=== PATIENT | female | born 1990 | race Caucasian/White ===

== ENCOUNTER 2018-04-18 21:23 | Outpatient (CLI) | END 2018-04-19 00:57 | disposition home or self-care (01) ==

== ENCOUNTER 2018-08-12 13:18 | Inpatient (IN) | payer OTHER ==
[~2018-08-12] VITALS: Ht 160 cm; Wt 75.4 kg
[~2018-08-12 13:18] MED LIST: HYDR250V5 IM; PREN-19 PO
[2018-08-12 13:35] VITALS: BP 107/70; PULSE 106; RESP 18
[2018-08-12 13:36] VITALS: Ht 160 cm; Wt 75.4 kg
--- NOTE | 2018-08-12 15:24 | PREAC ---
Date/Time of Note Date/Time of Note DATE: 08/12/18 TIME: 15:23 Anesthesia Eval and Record Evaluation Time Pre-Procedure Interview DATE: 08/12/18 TIME: 15:23 Age 28 Sex female NPO: Other (na) Preoperative diagnosis labor pain Planned procedure epidural Past Medical History Past Medical History: None Surgery & Anesthesia Issues No known issue Meds Anticoagulation: No Beta Chepe within 24 hr: No Reason Beta Chepe not given: Pt. not on B-Chepe Reported Medications Vit #76/Iron,Carb/FA (Prenatabs Rx Tablet) 1 Each Tablet, 1 EACH PO DAILY, TAB 04/18/18 Hydroxyprogesterone Caproate (Shaista) 250 Mg/1 Ml Vial, 250 MG IM, VIAL 04/18/18 Current Medications Lactated Ringer's 1,000 ml @ 125 mls/hr Q8H IV ; Start 08/12/18 at 15:06 Butorphanol Tartrate (Stadol) 1 mg Q2H PRN IV .PAIN; Start 08/12/18 at 15:30 Butorphanol Tartrate (Stadol) 2 mg Q2H PRN IV .PAIN; Start 08/12/18 at 15:30 Lidocaine (Xylocaine 1% (Mpf)) 30 ml ONCE PRN INJ .EPISIOTOMY; Start 08/12/18 at 15:30 Oxytocin/Lactated Ringer's 500 ml @ 500 mls/hr ONCE POST IV ; Start 08/12/18 at 15:30 Oxytocin/Lactated Ringer's 500 ml @ 125 mls/hr POST IV ; Start 08/12/18 at 15:30 Ibuprofen (Motrin) 600 mg ONCE PRN PO .PAIN 1-5; Start 08/12/18 at 15:30 Oxytocin/Lactated Ringer's 500 ml @ 0 mls/hr ONCE PRN IV .VAGINAL BLEEDING; Start 08/12/18 at 15:30 Methylergonovine Maleate (Methergine) 0.2 mg ONCE PRN IM .VAGINAL BLEEDING; Start 08/12/18 at 15:30 Carboprost Tromethamine (Hemabate) 250 mcg ONCE PRN IM .VAGINAL BLEEDING; Start 08/12/18 at 15:30 Misoprostol (Cytotec) 1,000 mcg ONCE PRN LA .VAGINAL BLEEDING; Start 08/12/18 at 15:30 Meds reviewed: Yes Allergies Coded Allergies: No Known Allergy (Verified , 04/18/18) Allergies Reviewed: Yes Labs/Studies Labs Reviewed: Reviewed by anesthesiologist test: N/A Pre-procedure Exam Last vitals Vital Signs Date Temp Pulse Resp B/P (MAP) Pulse Ox O2 O2 Flow FiO2 Time Delivery Rate 08/12/18 97.6 106 18 107/70 98 Room Air 13:35 (82) Airway: Adequate mouth opening, Adequate thyromental dist Mallampati: Mallampati II Teeth: Normal Lung: Normal Heart: Normal ASA Physical Status ASA physical status: 2 Emergency: None Pre-operative Attestations Prior to commencing anesthesia and surgery, the patient was re-evaluated, there was verification of: *The patient's identity *The results of appropriate recent lab work and preoperative vital signs *The above evaluation not changing prior to induction *Anesthetic plan, risk benefits, alternative and complications discussed with patient/family; questions answered; patient/family understands, accepts and wishes to proceed. DALTON TABARES DO Aug 12, 2018 15:24
[2018-08-12] MEDS ORDERED: IBUPROFEN 600 MG TAB PO PRN (15:30)
[2018-08-12] MEDS ORDERED: LIDOCAINE 1% (MPF) 30 ML INJ INJ PRN (15:30)
[2018-08-12] MEDS ORDERED: OXYTOCIN 30 UNITS/LR 500 ML IV PRN (15:30)
[2018-08-12] MEDS ORDERED: METHYLERGONOVINE 0.2 MG INJ IM PRN (15:30)
[2018-08-12] MEDS ORDERED: CARBOPROST 250 MCG INJ IM PRN (15:30)
[2018-08-12] MEDS ORDERED: MISOPROSTOL 200 MCG TAB PR PRN (15:30)
[2018-08-12] MEDS ORDERED: NALOXONE (0.4 MG/ML) INJ IV PRN (15:30)
[2018-08-12] MEDS ORDERED: BUTORPHANOL 2 MG INJ IV PRN (15:30)
[2018-08-12] MEDS ORDERED: BUTORPHANOL 1 MG INJ IV PRN (15:30)
[2018-08-12] MEDS ORDERED: OXYTOCIN 30 UNITS/LR 500 ML IV SCH ×2 (15:30)
[2018-08-12] MEDS: LACTATED RINGER'S 1,000 ML IV SCH ×2 (15:39→23:07)
--- NOTE | 2018-08-12 16:22 | PAC ---
Date/Time of Note Date/Time of Note DATE: 08/12/18 TIME: 16:22 Post-Anesthesia Notes Post-Anesthesia Note Last documented vital signs Vital Signs Date Temp Pulse Resp B/P (MAP) Pulse Ox O2 O2 Flow FiO2 Time Delivery Rate 08/12/18 98 91 18 120/55 98 Room Air 1600 Activity: WNL Respiratory function: WNL Cardiovascular function: WNL Mental status: Baseline Pain reasonably controlled: Yes Hydration appropriate: Yes Nausea/Vomiting absent: Yes DALTON TABARES DO Aug 12, 2018 16:22
[2018-08-12] MEDS: FENTAnyl 2MCG/ML-ROPIV 0.2% 100 ML BAG EPI SCH (23:08)
[2018-08-12] MEDS ORDERED: DIPHENHYDRAMINE 50 MG INJ IV PRN (23:30)
[2018-08-12] MEDS ORDERED: ONDANSETRON 4 MG INJ IV PRN (23:30)
[2018-08-13] MEDS: LACTATED RINGER'S 1,000 ML IV SCH ×2 (06:38→14:55)
[2018-08-13] MEDS: FENTAnyl 2MCG/ML-ROPIV 0.2% 100 ML BAG EPI SCH ×2 (08:12→15:26)
[2018-08-13] MEDS ORDERED: OXYTOCIN 30 UNITS/LR 500 ML IV SCH (11:30)
[2018-08-13] MEDS ORDERED: MINERAL OIL LIGHT 10 ML VIAL TOP ONE (16:00)
--- NOTE | 2018-08-13 17:51 | HP ---
Date/Time of Note Date/Time of Note DATE: 08/13/18 TIME: 17:47 OB - History Hx of Present Free Text/Dictation 28-year-old female 5 para 3 at 38+ weeks gestation admitted complaining of onset of labor contractions started at 11 AM Patient denied rupture of membrane no vaginal bleeding Chief Complaint: Labor contraction Last Menstrual Period: November 18, 2017 Estimated Due Date: Aug 25, 2018 : 5 Para: 3 Spontaneous : 1 Care: Good Care Ultrasounds: Normal mid trimester US Obstetrical Complications: None, Other (low MARIA DEL ROSARIO-A) Medical Complications: None Past Family/Social History * Past Medical, Surgical, Family and Obstetric Histories reviewed from chart. Blood Type: B+ Rubella: immune RPR/VDRL: Negative GBS Status: Negative HBsAG: Negative OB Admission Exam Vital Signs Vital Signs Vital Signs Date Temp Pulse Resp B/P (MAP) Pulse Ox O2 O2 Flow FiO2 Time Delivery Rate 08/12/18 97.6 106 18 107/70 98 Room Air 13:35 (82) Physical Exam HEENT: WNL Heart: Rhythm Normal Lungs: Clear, Equal Abdomen: WNL Extremities: Normal Reflexes: Normal Cervical Dilatation: 2cm Effacement: 50% Station: -3 Membranes: Intact Heart Rate: 140's Accelerations: Accelerations Present Decelerations: No Decelerations Varibility: Marked Contractions on Admission: 6-10 Minutes Apart Date/Time Contractions Began: 08/12/2018 at 11 AM Frequency of Contractions: Every 5-10-minute Duration: Over 62nd Intensity: Mild Last 72 hours Lab Results CBC & BMP 08/12/18 14:20 OB Assessment/Plan Other Assessment: Term gestation Labor contractions Other plan: Proceed with spontaneous labor ELLIOT CHINCHILLA MD Aug 13, 2018 17:51
[2018-08-13] MEDS ORDERED: KETOROLAC 30 MG INJ IV STA (17:53)
--- NOTE | 2018-08-13 17:53 | LDN ---
Date/Time of Note Date/Time of Note DATE: 08/13/18 TIME: 17:51 Delivery Summary Normal spontaneous vaginal delivery of a viable over intact perineum Weeks of Gestation 38+ weeks Placenta Delivered: Spontaneously, Intact & Complete Meconium: none Episiotomy: Yes Perineal laceration: 0 Anesthesia type: Epidural Estimated blood loss: 300 Sponge & Needle done & correct: Yes All needle counts correct: Yes Any foreign bodies felt in the: No Infant Delivery Information Sex Infant Sex: male Apgars 1 Minute: 9 5 Minute: 9 Suctioning Nose & mouth suctioned at uzma: Yes Delee suction performed: No Umbilical Cord Umbilical cord with: 3 Vessels Cord presentations: no nuchal cord Cord Blood was obtained: Yes Mother & Baby Disposition Disposition Mom & Baby to Maternity; Good: Yes (Mother and baby were recovered in good condition) Mom transferred to: Other (Maternity) Baby to NICU: No ELLIOT CHINCHILLA MD Aug 13, 2018 17:53
[2018-08-13] MEDS ORDERED: CEFAZOLIN 2 GM/50 ML (PMX) 50 ML IVPB ONE (18:00)
[2018-08-13 21:40] VITALS: BP 116/70; PULSE 81; RESP 18
[2018-08-13] MEDS ORDERED: DIBUCAINE 1% 30 GM OINT TOP PRN (22:00)
[2018-08-13] MEDS ORDERED: ZOLPIDEM 5 MG TAB PO PRN (22:00)
[2018-08-13] MEDS ORDERED: MISOPROSTOL 200 MCG TAB PR PRN (22:00)
[2018-08-13] MEDS ORDERED: HYDROCODONE/APAP (5/325) TAB PO PRN (22:00)
[2018-08-13] MEDS ORDERED: LANOLIN HPA 1 PKT TOP PRN (22:00)
[2018-08-13] MEDS ORDERED: BENZOCAINE 20% 56 ML SPRAY TOP PRN (22:00)
[2018-08-13] MEDS ORDERED: OXYTOCIN 30 UNITS/LR 500 ML IV PRN (22:00)
[2018-08-13] MEDS ORDERED: METHYLERGONOVINE 0.2 MG INJ IM PRN (22:00)
[2018-08-13] MEDS ORDERED: WITCH HAZEL/GLYCERIN PAD PR PRN (22:00)
[2018-08-13] MEDS ORDERED: CARBOPROST 250 MCG INJ IM PRN (22:00)
[2018-08-13] MEDS: LACTATED RINGER'S 1,000 ML IV* SCH (22:28)
[2018-08-13 22:30] VITALS: BP 112/65; PULSE 78; RESP 18
[2018-08-13] MEDS: IBUPROFEN 600 MG TAB PO SCH (23:25)
[2018-08-13] MEDS: CEPHALEXIN 500 MG CAP PO SCH (23:28)
[2018-08-14 04:25] VITALS: BP 112/62; PULSE 78; RESP 18
[2018-08-14] MEDS: IBUPROFEN 600 MG TAB PO SCH ×4 (05:35→23:38)
[2018-08-14] MEDS: CEPHALEXIN 500 MG CAP PO SCH ×4 (05:35→23:38)
[2018-08-14] MEDS: LACTATED RINGER'S 1,000 ML IV* SCH ×2 (05:50→13:50)
[2018-08-14 07:50] VITALS: BP 107/55; PULSE 66; RESP 17
[2018-08-14] MEDS: MAGNESIUM HYDROXIDE 30ML CUP PO SCH ×2 (09:00→20:47)
[2018-08-14] MEDS: SENNA/DOCUSATE NA (8.6MG/50MG) TAB PO SCH ×2 (09:00→20:47)
[2018-08-14] MEDS: HYDROCODONE/APAP (5/325) TAB PO PRN ×2 (10:16→22:15)
--- NOTE | 2018-08-14 13:28 | DS ---
Date/Time of Note Date/Time of Note Home today or next day DATE: 08/14/18 TIME: 13:28 Obstetrical Discharge Record Final Diagnosis Final Diagnosis: Term delivered Other Final Diagnosis Status post vaginal delivery Vaginal Delivery Obstetrical Delivery: Spontaneous Condition on Discharge Physical Assessment Last Vitals: See nurse's notes Voiding: Yes Bowel Movement: Yes Breast: Soft, non-tender, Filling Fundus: Firm Abdomen and Incision: Soft with present bowel sounds Fundus is firm at the U Calf Tenderness: No Patient Condition: Good ELLIOT CHINCHILLA MD Aug 14, 2018 13:28
--- NOTE | 2018-08-14 13:30 | PD.PPDC ---
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 Discharge Instruction Provider Information Physician Information 28-year-old female had vaginal delivery Diagnosis [id number] Final Diagnosis: [id number] Status post vaginal delivery Condition [id number] Patient Condition: [id number] Good Diet [id number] Diet: Adnbl4r Resume Regular Diet Activity/Restrictions Iqeso0Hn Activity: [id number] Normal Activity May Shower [id number] Restrictions: [id number] Nothing in the Vagina [id number] Return to Work or School: [id number] Oct 06, 2018 Follow-up Follow-up with Physician: 2, 4, Week/Weeks (In clinic for follow-up) Return to clinic for [id number] OB Instructions: [id number] Breast Tenderness Depression Comment: Pelvic rest for 6 weeks ELLIOT CHINCHILLA MD Aug 14, 2018 13:30
[2018-08-14] MEDS ORDERED: IBUP-1542 PO (13:31)
[2018-08-14 16:10] VITALS: BP 106/68; PULSE 65; RESP 16
[2018-08-14 19:20] VITALS: BP 98/53; PULSE 73; RESP 18
[2018-08-15 04:03] VITALS: BP 95/55; PULSE 56; RESP 18
[2018-08-15] MEDS: CEPHALEXIN 500 MG CAP PO SCH ×2 (05:39→11:43)
[2018-08-15] MEDS: IBUPROFEN 600 MG TAB PO SCH ×2 (05:40→11:43)
[2018-08-15 08:15] VITALS: BP 104/68; PULSE 69; RESP 18
[2018-08-15] MEDS ORDERED: MEASLES,MUMPS,RUBELLA VACCINE INJ SC* ONE (09:00)
[2018-08-15] MEDS ORDERED: DIPHTH/TET/ACEL PERTUSS (ADULT) 0.5 ML VIAL IM* ONE (09:00)
[2018-08-15] MEDS ORDERED: VARICELLA VACCINE LIVE/PF 1,350 UNIT/0.5 ML ML SC* ONE (09:00)
[2018-08-15] MEDS: MAGNESIUM HYDROXIDE 30ML CUP PO SCH (09:00)
[2018-08-15] MEDS: SENNA/DOCUSATE NA (8.6MG/50MG) TAB PO SCH (09:35)
--- NOTE | 2018-08-18 23:04 | NSTRPT ---
NST Information Datetime Report Generated by CPN: 08/18/2018 23:03 Datetime: 08/07/2018 13:15 NST Information EGA: 37.4 Test Number: 12 Time on Monitor: 08/07/2018 13:59 Time off Monitor: 08/07/2018 14:39 NST Duration (Min): 40 Reason for NST: Low MARIA DEL ROSARIO Test and Monitor Explained: Monitor Explained; Test Explained; Verbalized Understanding Pulse: 83 Resp: 18 SBP: 108 DBP: 59 Test Evaluation NST Interventions: Reposition Patient; Acoustic Stimulation Patient States Movement: Present Contraction Frequency: NONE FHR Baseline : 130 Variability: Moderate 6-25bpm Accelerations: 15X15 Decelerations: None FHR Category: Category I NST Results: Reactive Comments: To u/s. BREE 15.2cm. CEPHALIC. Electronically Signed By E-Signature: with User ID: [id number] Datetime: 08/04/2018 13:08 NST Information EGA: 37.1 NST Duration (Min): 38 Datetime: 07/31/2018 13:07 NST Information EGA: 36.4 NST Duration (Min): 34 Datetime: 07/28/2018 14:45 NST Information EGA: 36.1 NST Duration (Min): 20 Datetime: 07/24/2018 14:15 NST Information EGA: 35.4 NST Duration (Min): 40 Datetime: 07/21/2018 13:34 NST Information EGA: 35.1 NST Duration (Min): 31 Datetime: 07/17/2018 13:35 NST Information EGA: 34.4 NST Duration (Min): 52 Datetime: 07/14/2018 14:28 NST Information EGA: 34.1 NST Duration (Min): 35 Datetime: 07/10/2018 14:08 NST Information EGA: 33.4 NST Duration (Min): 26 Datetime: 07/07/2018 14:05 NST Information EGA: 33.1 NST Duration (Min): 30 Datetime: 07/04/2018 10:40 NST Information EGA: 32.5 NST Duration (Min): 33 Datetime: 07/01/2018 14:19 NST Information EGA: 32.2 NST Duration (Min): 70
== END 2018-08-15 14:36 | disposition home or self-care (01) | DRG 807 ==
LOC: L-D 13:18 → OBT 13:18 → L-D 13:50 → PP1 08-13 21:36
PROVIDERS: ADMIT Obstetrics & Gynecology; ATTEND Obstetrics & Gynecology
PROC: 10E0XZZ Delivery of Products of Conception, External Approach (ICD-10-PCS; principal; 2018-08-13)
DX: O80 Encounter for full-term uncomplicated delivery (principal); Z37.0 Single live birth; Z3A.38 38 weeks gestation of pregnancy
CPT/HCPCS: 62319; 85025; 85610; 85730; 86592; 86850; 86900; 86901; 87340; G0463; J0690; J1885; J2405; J2590; J3010; J7120

== ENCOUNTER 2019-04-28 09:54 | Day surgery (SDC) | payer OTHER ==
[2019-04-27 17:18] VITALS: BMI 27.3
[2019-04-28] VITALS (19 sets, daily range): BP systolic 93–133; BP diastolic 56–77; PULSE 62–82; RESP 13–31; Ht 160 cm; Wt 69.4 kg
[~2019-04-28] VITALS: Ht 160 cm; Wt 69.4 kg
[~2019-04-28 09:54] MED LIST changes: +CEFAZOLIN 2 GM/50 ML (PMX) 50 ML IVPB ONE; +CEPH-443 PO; +CIPR500T4 PO; +DOXY-214 PO; +HYDR-4011 PO; +IBUP-1542 PO; +IBUP800T48 PO; +METR500T PO; +NAPR-985 PO; +[UNRECOGNIZED DRUG - CODE] PO
[2019-04-28] MEDS ORDERED: CEFAZOLIN 1 GM INJ ONE (11:40)
[2019-04-28] MEDS ORDERED: LIDOCAINE 100 MG SYRINGE ONE (11:40)
[2019-04-28] MEDS ORDERED: PROPOFOL 20 ML ONE (11:40)
[2019-04-28] MEDS ORDERED: DESFLURANE 15 MIN ONE (11:40)
[2019-04-28] MEDS ORDERED: ROCURONIUM 50 MG INJ ONE (11:40)
[2019-04-28] MEDS ORDERED: MIDAZOLAM 1 MG/ML 2 ML INJ ONE (11:41)
[2019-04-28] MEDS ORDERED: FENTAnyl 50 MCG/ML VIAL ONE ×2 (11:41→13:26)
[2019-04-28] MEDS ORDERED: ROPIVACAINE 0.5 % 30 ML VIAL ONE (11:45)
[2019-04-28] MEDS ORDERED: HYDROmorphONE 1 MG/5 ML IV SYRINGE IV PRN ×3 (12:00)
[2019-04-28] MEDS ORDERED: ONDANSETRON 4 MG INJ IV PRN (12:00)
[2019-04-28] MEDS ORDERED: FENTAnyl 50 MCG/ML VIAL IV PRN ×3 (12:00)
[2019-04-28] MEDS ORDERED: MEPERIDINE 25 MG INJ IV PRN (12:00)
[2019-04-28] MEDS ORDERED: LABETALOL HCL 20MG INJ IV PRN (12:00)
[2019-04-28] MEDS ORDERED: EPHEDrine 25 MG/5 ML SYG IV PRN (12:00)
[2019-04-28] MEDS ORDERED: DIPHENHYDRAMINE 50 MG INJ IV PRN (12:00)
[2019-04-28] MEDS ORDERED: IPRATROPIUM (NEB) 0.5 MG/2.5 ML AMP HHN PRN (12:00)
[2019-04-28] MEDS ORDERED: ALBUTEROL 0.083% (NEB) 2.5 MG/3 ML AMP HHN PRN (12:00)
[2019-04-28] MEDS ORDERED: hydrALAzine 20 MG INJ IV PRN (12:00)
[2019-04-28] MEDS ORDERED: OXYCODONE/ACETAMINOPHEN (5/325) TAB PO PRN ×2 (12:00)
[2019-04-28] MEDS ORDERED: DEXAMETHASONE 4 MG/ML 5 ML INJ ONE (13:12)
[2019-04-28] MEDS ORDERED: ONDANSETRON 4 MG INJ ONE (13:12)
[2019-04-28] MEDS ORDERED: BUPIVACAINE 0.25%/EPI (MDV) 50 ML VIAL INJ ONE (13:19)
[2019-04-28] MEDS ORDERED: ACETAMINOPHEN 500 MG TAB PO STA (13:54)
[2019-04-28] MEDS ORDERED: KETOROLAC 60 MG INJ IM STA (13:54)
[2019-04-28] MEDS ORDERED: BUTORPHANOL 2 MG INJ IM ONE (14:00)
[2019-04-28] MEDS ORDERED: DOXYCYCLINE 100 MG TAB PO ONE (14:00)
== END 2019-04-28 16:13 | disposition home or self-care (01) ==
LOC: SDS 09:54
PROVIDERS: ATTEND Obstetrics & Gynecology
DX: Z30.2 Encounter for sterilization (principal)
CPT/HCPCS: 58670; 85025; 85610; 85730; J0595; J0690; J1100; J1170; J1885; J2250; J2405; J2795; J3010; Z7512; Z7610; J2001